=== PATIENT | male | born 1965 | race Caucasian/White ===

== ENCOUNTER 2020-10-12 14:14 | Emergency (ER) | payer BC ==
[2020-10-12] MEDS ORDERED: CYCLOBENZAPRINE10 MG PO (15:55)
[2020-10-12] MEDS ORDERED: TORADOL 10 MG T10 MG PO (15:55)
== END 2020-10-12 16:08 | disposition home or self-care (01) ==
LOC: ER1 14:14
DX: S39.012A Strain of muscle, fascia and tendon of lower back, initial encounter (principal); E11.9 Type 2 diabetes mellitus without complications; I10 Essential (primary) hypertension; F17.210 Nicotine dependence, cigarettes, uncomplicated; X50.9XXA Other and unspecified overexertion or strenuous movements or postures, initial encounter
CPT/HCPCS: 96372; 99283; J1885; J2360